=== PATIENT | male | born 1955 | race Caucasian/White ===

== ENCOUNTER 2016-09-18 14:14 | Emergency (ER) | payer OTHER ==
[~2016-09-18] VITALS: Ht 170.2 cm; Wt 63.5 kg
[2016-09-18 17:22] VITALS: BP 119/70
== END 2016-09-18 17:20 | disposition short-term general hospital (02) ==
LOC: ER 14:14
DX: S68.123A Partial traumatic metacarpophalangeal amputation of left middle finger, initial encounter (principal); W31.89XA Contact with other specified machinery, initial encounter; Y93.89 Activity, other specified; Y92.89 Other specified places as the place of occurrence of the external cause; Y99.9 Unspecified external cause status

== ENCOUNTER 2021-07-16 15:45 | Emergency (ER) | payer OTHER ==
[~2021-07-16] VITALS: Ht 172.7 cm; Wt 61.2 kg
[2021-07-16] MEDS ORDERED: NAPROSYN500 MG PO (16:55)
[2021-07-16 17:00] VITALS: BP 124/77
== END 2021-07-16 17:13 | disposition home or self-care (01) ==
LOC: ER 15:45
DX: S00.93XA Contusion of unspecified part of head, initial encounter (principal); X58.XXXA Exposure to other specified factors, initial encounter; Y93.89 Activity, other specified; Y92.89 Other specified places as the place of occurrence of the external cause; Y99.8 Other external cause status